=== PATIENT | male | born 1985 | race African-American/Black ===

== ENCOUNTER 2022-10-12 19:42 | Emergency (ER) | payer SELFPAY ==
[2022-10-12 19:47] VITALS: BP 126/79; PULSE 78; RESP 18; TEMP 98; BMI 31.0
[2022-10-12] MEDS ORDERED: metFORMIN HCL 500 MG TABLET (FP) PO ONE (21:14)
[2022-10-12] MEDS ORDERED: metFORMIN HCL 500 MG TABLET (FP) ONE (21:23)
== END 2022-10-12 21:28 | disposition home or self-care (01) ==
LOC: JER 19:42
DX: E11.65 Type 2 diabetes mellitus with hyperglycemia (principal); Z91.198 Patient's noncompliance with other medical treatment and regimen for other reason
CPT/HCPCS: 82962; 99283-25

== ENCOUNTER 2023-07-19 04:12 | Day surgery (SDC) | payer OTHER ==
[2023-07-12 09:14] VITALS: BMI 30.2
[2023-07-19] MEDS ORDERED: LIDOCAINE HCL 1%, 10 MG/ML (20ML VIAL) ONE (08:01)
[2023-07-19] MEDS ORDERED: BUPIVACAINE HCL/PF 0.5% (5MG/ML) 10 ML VIAL ONE ×2 (08:01→10:30)
[2023-07-19] MEDS: BUPIVACAINE HCL/PF 0.5% (5MG/ML) 10 ML VIAL IJ ONE ×2 (09:55→10:40)
[2023-07-19] MEDS: LIDOCAINE HCL 1%, 10 MG/ML (20ML VIAL) INF ONE ×2 (09:55→10:40)
[2023-07-19] MEDS ORDERED: oxyCODONE HCL 5 MG TABLET PO PRN (10:01)
[2023-07-19] MEDS ORDERED: ONDANSETRON 4 MG/2 ML VIAL IVPUSH PRN (10:01)
[2023-07-19] MEDS ORDERED: DEXMEDETOMIDINE HCL 200 MCG/2 ML IVPB ONE (10:13)
[2023-07-19] MEDS ORDERED: LACTATED RINGERS SOLUTION 1,000 ML IV SCH (10:15)
[2023-07-19] MEDS ORDERED: MIDAZOLAM HCL 2 MG/2 ML SINGLE DOSE VIAL ONE (10:21)
[2023-07-19] MEDS ORDERED: KETAMINE HCL 200 MG/20 ML VIAL ONE (10:21)
[2023-07-19 12:10] VITALS: TEMP 98.5
[2023-07-19 13:52] VITALS: BP 115/71; PULSE 78; RESP 20
== END 2023-07-19 13:39 | disposition home or self-care (01) ==
LOC: JASU-SURG 04:12
PROVIDERS: ATTEND Surgery
PROC: 0JB90ZZ Excision of Buttock Subcutaneous Tissue and Fascia, Open Approach (ICD-10-PCS; principal; 2023-07-19 10:00)
DX: L72.3 Sebaceous cyst (principal)
CPT/HCPCS: 82962; 88304-TC